=== PATIENT | male | born 1980 ===

== ENCOUNTER → 2025-02-03 07:37 | Outpatient (REF) | payer MEDICARE, SELFPAY | LOC: PAVMRI 07:37 | PROVIDERS: ATTENDING PHYSICIAN Orthopaedic Surgery Orthopaedic Trauma; FAMILY PHYSICIAN Family Medicine; REFERRING PHYSICIAN Orthopaedic Surgery Hand Surgery | DX: M00.9 Pyogenic arthritis, unspecified (principal); M79.644 Pain in right finger(s) | CPT/HCPCS: 73218 ==